=== PATIENT | male | born 2005 ===

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

== ENCOUNTER 2025-02-24 08:29 | Outpatient (CLI) | payer OTHER | END 2025-02-24 08:32 | disposition home or self-care (01) | LOC: TOM 08:29 | DX: J32.0 Chronic maxillary sinusitis (principal) ==

== ENCOUNTER → 2025-02-24 09:32 | Outpatient (CLI) | payer OTHER ==
[2025-02-24 10:26] LABS: URINE APPEARANCE Clear; URINE BILIRRUBIN Negative (NEGATIVE); URINE BLOOD Negative; URINE COLOR Yellow; URINE GLUCOSE Negative (NEGATIVE); URINE KETONE Negative (NEGATIVE); URINE LEUKOCYTE Negative; URINE NITRATE Negative; URINE PROTEIN Negative (NEGATIVE); URINE UROBILINOGEN 1.0 E.U./dl
[2025-02-24 10:28] LABS: URINE BACTERIA 8.3 uL (0.0-1933)
[2025-02-24 10:29] LABS: BASO % 1.4 % (0.1-1.2); EOS # 0.16 (0.04-0.54); EOS % 3.8 % (0.7-7.0); LYMPH # 1.77 (1.18-3.74); LYMPH % 41.5 % (19.3-53.1); MEAN PLATELET VOLUME 10.80 fl (9.4-12.4); MONO # 0.49 (0.24-0.82); MONO % 11.5 % (4.7-12.5); NEUT # 1.77 (1.56-6.13); NEUT % 41.6 % (34.0-71.1); RED CELL DISTRIBUTION WIDTH 13.1 % (11.6-14.4)
[2025-02-24 10:42] LABS: URINE CAST 0.14 uL (0.0-1.40); URINE EPITHELIAL CELLS 0.4 uL (0.0-38.8); URINE RBC 1.6 uL (0.0-20.8); URINE WBC 0.7 uL (0.0-23.2)
[2025-02-24 10:49] LABS: INR 1.04
[2025-02-24 11:12] LABS: ALT/SGPT 29.0 U/L (12-78); AST/SGOT 19.0 U/L (15-37); BILIRUBIN TOTAL 0.47 mg/dL (0.3-1.2); BUN CREA RATIO 19.0 (7.0-25.0); CREATININE SERUM 0.9 mg/dL (0.70-1.30); GFR 106.52; GLOBULINA 3.2 G/DL (2.4-3.5); GLUCOSE FASTING 97.0 mg/dL (65-100); OSMOLALITY SERUM 281.0 MOSM/KG (275-295)
== END | disposition home or self-care (01) ==
LOC: LAB 09:32
PROVIDERS: ATTEND Radiology Diagnostic Radiology
DX: R04.0 Epistaxis (principal); D14.0 Benign neoplasm of middle ear, nasal cavity and accessory sinuses